=== PATIENT | female | born 1985 | race Caucasian/White ===

== ENCOUNTER 2019-11-24 09:06 | Day surgery (SDC) | payer OTHER ==
[~2019-11-24] VITALS: Ht 167.6 cm; Wt 90.7 kg
[~2019-11-24 09:06] MED LIST: BISMATROL525 MG/15 PO; FLAGYL500 MG; OMEPRAZOLE20 MG PO; TETRACYCLINE H500 MG PO
--- NOTE | 2019-11-24 10:27 | NUR ---
NOTIFIED DR. ALDRICH OF PATIENT REPORTED ANAPHYLACTIC REACTION TO TETRACYCLINE AND FLAGYL. PATIENT STATED" MY THROAT CLOSED UP AND I COULDNT' BREATHE". NEW ORDER TO DC FLAGYL.
--- NOTE | 2019-11-24 12:03 | NUR ---
11/24/19 1203 Dolly Bustillos 1156 PATIENT ARRIVES TO PACU AWAKE OFF/ON, BUT VERY DROWSY. STATES "I DONT FEEL GOOD." BUT UNABLE TO SPECIFY IF SHE IS HAVING PAIN OR NAUSEA. RESP EVEN AND UNLABORED, MASK AT 6 LITERS 1203 PATIENT CONTINUES TO BE VERY DROWSY. STATES SHE "DOESN'T FEEL VERY GOOD." WANTS TO GO TO SLEEP. ENCOURAGED PATIENT TO SLEEP. RESP EVEN AND UNLABORED, WILL TAKE OXYGEN MASK OFF.
--- NOTE | 2019-11-24 12:35 | NUR ---
PATIENT BACK TO ROOM ERIC WEISS RECIEVED BEDSIDE REPORT FROM ERIC WEISS. VSS. PATIENT RESTING BACK IN BED WITH EYES CLOSED. COLD WASH CLOTH TO FACE. CALL LIGHT WITHIN REACH. SUTURES TO ABDOMEN SMALL AMOUNT OF DRAINAGE.
--- NOTE | 2019-11-24 13:15 | NUR ---
PATIENT REPORTS NAUSEA SLIGHTLY BETTER. LIGHTS DIM, PATIENT RESTING. PATIENT REQUESTED TO REST LONGER BEFORE TRYING TO SIT UP, STATES " MY WORLD IS WAI SPINNING".
--- NOTE | 2019-11-24 14:14 | NUR ---
PATIENT CONTINUES TO FEEL NAUSEA, HAS COOL RAG OVER FACE. DOES NOT WANT TO REMOVE RAG, WARM BLANKET PROVIDED. DRESSING INTACT WITH SMALL AMOUNT OF DRAINAGE. REPORTS PAIN 2/10 ON PAIN SCALE. WATER AND CRACKERS AT BEDSIDE, PATIENT REPORTS " I HAVE NEVER FELT THIS NAUSITOUS BEFORE". VSS. CALL LIGHT WITHIN REACH.
--- NOTE | 2019-11-24 16:27 | NUR ---
PROVIDED PATIENT WITH DISCHARGE INSTRUCTION, PATIENT THEN UP PACING HALLS STATING " I AM SO READY TO GO, I WANT TO GO EAT". ANSWERED QUESTIONS AND CONCERNS. PATIENT REPORT CONCERNS OF UVULA IN BACK OF THROAT HANGING DOWN AND STATED " FEELS LIKE I AM SWALLOWING IT". NOTED REDNESS, NO SWELLING AND UVULA APPEARED TO BE HANGING DOWN. ATTEMPTED TO NOTIFY DR. ALDRICH VIA TELEPHONE, NO ANSWER BUT LEFT MESSAGE. NOTIFIED ISAIAH DIETZ CRNA, WHO VERBALIZED IRRITATION SHOULD GET BETTER IN FEW DAYS. PATIENT REPORTS PAIN 3/10 TOLERABLE. REINFORCED DRESSING WITH CLEAN GAUZE AND TAPE PER PATIENT REQUEST. SMALL AMOUNT OF DRAINAGE ON DRESSING REMOVED. STERI STRIPS INTACT. ICE APPLIED TO ABDOMEN, PROVIDED FRESH ICEWATER AND ICE BAG TO PATIENT ALONG WITH SOME SALTINE CRACKERS. PROVIDED WHEELCHAIR RIDE TO FRONT. SCRIPT IN PATIENT HAND.
--- NOTE | 2019-11-28 08:18 | OR ---
[facility] [address], [place] [address] Signed DATE OF OPERATION: 11/24/2019 SURGEON: Remedios Aldrich MD PREOPERATIVE DIAGNOSIS: Incarcerated recurrent periumbilical hernia (3 cm). POSTOPERATIVE DIAGNOSIS: Incarcerated recurrent periumbilical hernia (3 cm). PROCEDURE: Primary periumbilical herniorrhaphy without mesh. ESTIMATED BLOOD LOSS: None. INDICATIONS: Faye is a 34-year-old female at 5 feet 6 inches, 265 pounds. She has been through three C-sections. During her 2nd , she had what was either an incision or an umbilical hernia repaired from underneath with #1 PDS suture along with 0 Ethibond. She said it held together well several years until her 3rd . She had her tube site at that time. Afterward, she developed a recurrent hernia in that area. She said it is large, probably the size of a baseball. It is incarcerated and causing her pain. She had been asked to see me with respect to the above. In the office, we could not reduce that hernia. I gave her our brochure on hernias and we looked at that carefully. I explained her the difference between a primary suture repair and a mesh repair. We did review the expected intraop and postop course. She understands there is risk including, but not limited to bleeding, infection, scarring, change in contour of the skin as well as damage to bowel infection, mesh requiring removal, as well as recurrent hernias and chronic pain. She had expressed understanding and wished to proceed. DESCRIPTION OF PROCEDURE: I met with Faye in our preop area. She had been on tetracycline and Flagyl for her recent diagnosis of Helicobacter pylori. She developed hives and closing of her airways, so we canceled the Flagyl. We gave her Ancef and that worked out fine. We could palpate this incarcerated hernia once again. We marked that appropriately. Afterwards, Faye was taken into our operating room and placed in the supine position under general endotracheal tube anesthesia. Again, she was given preoperative Ancef along with subcutaneous heparin. SCDs were utilized. She was then prepped and draped Electronically Signed By: REMEDIOS ALDRICH MD 11/28/19 0818 PATIENT NAME: FAYE ROME OPERATIVE REPORT DATE OF : 87 REPORT #: [id number] PHYSICIAN: REMEDIOS ALDRICH MD PCP: MARIA ESTHER HERNANDEZ PA-C REPORT IS CONFIDENTIAL AND NOT TO BE RELEASED WITHOUT AUTHORIZATION [facility] [address], [place] [address] Signed in the usual sterile fashion. We made a standard vertical midline supraumbilical incision and carried down around the herniated tissue with the help of the cautery and bluntly. The hernia sac was opened and excised completely and discarded. She had incarcerated omentum. It was carefully reduced. We found that she had very thick preperitoneal adipose tissue developed a pocket for the mesh. We decided to close her small 3 cm hernia primarily. She has significant redundancy in the abdominal wall and it came together without any tension whatsoever. We used interrupted # 1 [id number] Prolene sutures x3. After this, local anesthetic was injected into the abdominal wall and subcutaneous tissues. We closed the wound in layers with 3-0 Monocryl suture including the dermis. The skin was reapproximated with a running 5-0 fast absorbing plain gut suture. Dry gauze and tape were then applied. After this, Faye was awakened from her anesthesia, extubated in the OR, and taken to the recovery room in stable condition. Remedios Aldrich MD ALB/MODL /[id number] cc: MD Maria Esther Carvajal PA-C Copies: REMEDIOS ALDRICH MD ~ Electronically Signed By: REMEDIOS ALDRICH MD 11/28/19 0818 PATIENT NAME: FAYE ROME OPERATIVE REPORT DATE OF : 87 REPORT #: [id number] PHYSICIAN: REMEDIOS ALDRICH MD PCP: MARIA ESTHER HERNANDEZ PA-C REPORT IS CONFIDENTIAL AND NOT TO BE RELEASED WITHOUT AUTHORIZATION
== END 2019-11-24 16:15 | disposition home or self-care (01) ==
LOC: DS 09:06
PROVIDERS: Colon & Rectal Surgery
PROC: 0WQF0ZZ Repair Abdominal Wall, Open Approach (ICD-10-PCS; principal; 2019-11-24 10:00)
DX: K42.0 Umbilical hernia with obstruction, without gangrene (principal); J45.909 Unspecified asthma, uncomplicated; F41.9 Anxiety disorder, unspecified; F17.210 Nicotine dependence, cigarettes, uncomplicated; Z79.899 Other long term (current) drug therapy
CPT/HCPCS: J0690; J1100; J1644; J1885; J2405; J2550; J2704; J2765; J3010; J7121